=== PATIENT | female | born 1965 | race Caucasian/White ===

== ENCOUNTER 2017-03-16 10:01 | Emergency (ER) | payer MEDICARE, MEDICAID ==
--- NOTE | 2017-03-16 10:47 | ED ---
Abdominal Pain/Female - HPI Summary HPI Summary: Patient presents to the ED with CC of LLQ pain x 3 days. She states the pain is aching/stabbing, is intermitten and rates a 4/10. Worse with BM which the pain radiates to the bilateral flanks. Last BM and was constipated at first with a hard stool, then loose stool to follow. Urinary symptoms include frequency, but denies others. Surgical history includes cholecystectomy and hysterectomy. Denies fevers, sweats or chills. Denies chest pain or SOB. PMHx includes morbid obesity and HTN which is controlled with medications. Denies weakness, YORK, neck pain, nausea and vomiting. She is eating and drinking OK and denies history of constipation. She states she has never had a CT scan. - History of Current Complaint Chief Complaint: EDAbdPain Stated Complaint: ABD PAIN Time Seen by Provider: 03/16/17 10:10 Hx Obtained From: Patient ?: No Onset/Duration: Sudden Onset Timing: Minutes Severity Initially: Moderate Severity Currently: Moderate Pain Intensity: 8 Pain Scale Used: 0-10 Numeric Location: Discrete At: RLQ, Discrete At: LLQ Radiates to: Flank Character: Sharp, Cramping Aggravating Factor(s): Other: - BM Alleviating Factor(s): Nothing Associated Signs and Symptoms: Positive: Constipation, Urinary Symptoms. Negative: Diaphoresis, Fever, Cough, Chest Pain, Vaginal Discharge, Nausea, Vomiting - Risk Factors Ectopic Risk Factor: Negative Allergies/Adverse Reactions: Allergies Allergy/AdvReac Type Severity Reaction Status Date / Time No Known Allergies Allergy Verified 03/16/17 10:58 Home Medications: Home Medications Metoprolol Succinate XL TAB* [Toprol XL TAB*] 10 mg PO DAILY 03/16/17 [History Confirmed 03/16/17] PMH/Surg Hx/FS Hx/Imm Hx Previously Healthy: Yes - morbidly obese - Immunization History Hx Pertussis Vaccination: No Immunizations Up to Date: Unable to Obtain/Confirm Infectious Disease History: No Infectious Disease History: Denies: Traveled Outside the [place] in Last 30 Days - Social History Occupation: Employed Full-time Lives: Alone Alcohol Use: None Hx Substance Use: No Substance Use Type: Reports: None Hx Tobacco Use: No Review of Systems - ROS Summary Review of Systems Summary: Constitutional: The patient denies fever, YORK. HEENT: Head: The patient denies headaches or dizziness. Eyes: The patient denies diplopia, blurry vision, eye pain, eye discharge, photophobia. Throat: The patient denies sore throats or hoarseness. Cardiovascular: The patient denies chest pain, palpitations, syncope, night cramps, or orthostasis. Respiratory: The patient denies cough, sputum production, hemoptysis, dyspnea, wheezing. Gastrointestinal: The patient denies odynophagia, dysphagia, hematemesis, melenemesis. Notes to LLQ abdominal pain. Denies constipation or diarrhea. Flank pain with BM. Genitourinary: Patient denies dysuria, hematuria, or pyuria. Patient denies back pain. Denies vaginal discharge, vaginal bleeding. Denies other urinary symptoms. Endocrine: The patient denies polydipsia, polyuria, or polyphagia. Muscles: The patient denies myalgia, strain or weakness. Joints: The patient denies arthralgia and/or arthritis. Neurologic: The patient denies headache, loss of consciousness, or seizure. Dermatologic: The patient denies hyperpigmentation, rash, or photosensitivity. Constitutional: Negative Eyes: Negative Cardiovascular: Negative Respiratory: Negative Negative: Shortness Of Breath, Cough Positive: Abdominal Pain Positive: see HPI, frequency Musculoskeletal: Negative Neurological: Negative Psychological: Normal All Other Systems Reviewed And Are Negative: Yes Physical Exam - Summary Physical Exam Summary: Patient is A and O x 3. Morbidly obese. Appearance: WDW, comfortable, pleasant, alert Skin: Soft dry skin, no lesions. Nailbeds pink with no cyanosis or clubbing. No petechia noted. Eyes: SARAI, EOMI, Conjunctiva pink with no redness or exudates. Mouth: Dentition without lesions. Moist mucosa Neck: Full range of motion. Palpable thyroid. Trachea at midline. No lymphadenopathy. Pulm: Chest symmetrical expansion. No deformities on posterior chest wall. Lungs clear to auscultation and percussion, without adventitious sounds. CV: No JVD. No deformities on anterior chest wall. Heart soundsRRR, Normal S1 and single S2. No S3, S4, rubs, or murmurs. Carotids 2+ bilaterally without bruits. . exam not performed Musculoskeletal: Flexion and extension of neck limited d/t pain. Brudzynski and Kernig sign negative. No deformities noted. Pulses full and equal. Neuro: Motor strength is 5/5 in upper and lower extremities bilaterally. A&OX3 Psych: Logical, coherent Triage Information Reviewed: Yes Vital Signs On Initial Exam: Initial Vitals Temp Pulse Resp BP Pulse Ox 98.8 F 88 20 154/82 96 03/16/17 10:03 03/16/17 10:03 03/16/17 10:03 03/16/17 10:03 03/16/17 10:03 Vital Signs Reviewed: Yes Appearance: Positive: Well-Appearing, Well-Nourished Skin: Positive: Warm, Skin Color Reflects Adequate Perfusion Head/Face: Positive: Normal Head/Face Inspection Eyes: Positive: EOMI, SARAI, Conjunctiva Clear Neck: Positive: Supple, No Lymphadenopathy Respiratory/Lung Sounds: Positive: Clear to Auscultation, Breath Sounds Present Cardiovascular: Positive: Normal, RRR, Pulses are Symmetrical in both Upper and Lower Extremities Abdomen Description: Positive: Nontender, No Organomegaly, Soft Musculoskeletal: Positive: Normal, Strength/ROM Intact Neurological: Positive: Sensory/Motor Intact, Speech Normal Psychiatric: Positive: Normal AVPU Assessment: Alert Diagnostics - Vital Signs Vital Signs Temp Pulse Resp BP Pulse Ox 03/16/17 10:03 98.8 F 88 20 154/82 96 - Laboratory Result Diagrams: 03/16/17 11:05 03/16/17 11:05 Lab Statement: Any lab studies that have been ordered have been reviewed, and results considered in the medical decision making process. Abdominal Pain Fem Course/Dx - Course Course Of Treatment: Patient is sent to CT abd/pelvis for further evaluation of LLQ pain x 2 days. Pain is not worse with eating. Worse with BM. Labs WNL except for elevated WBC at 14.6 and CRP at 37. UA OK. She declines any pain medication while in ED. Denies history of diverticulitis. LLQ pain on palpation. RLQ pain on deep palpation. Mo's negative. Psoas negative. No tenderness at mcburney's point on light palpation, worse with deep palpation. No CVA tenderness noted. Bowel sounds normal in all 4 quadrants. VS stable. Abd/Pelvis shows: IMPRESSION: 1. FINDINGS MOST CONSISTENT WITH DIVERTICULITIS INVOLVING THE PROXIMAL SIGMOID COLON. THERE IS NO EVIDENCE FOR ABSCESS. 2. MILD HEPATOSPLENOMEGALY AND HEPATIC STEATOSIS. 3. STATUS POST CHOLECYSTECTOMY AND HYSTERECTOMY. Patient is re-eavluated for LLQ pain. - Diagnoses Differential Diagnosis: Positive: Constipation, Diverticulitis Provider Diagnoses: Diverticulitis Discharge - Discharge Plan Condition: Stable Disposition: HOME Prescriptions: Ciprofloxacin TAB* [Cipro 500 MG TAB*] 500 mg PO BID #20 tab Metronidazole [Flagyl 500 MG TAB] 500 mg PO TID #30 tab Patient Education Materials: Diverticulitis (ED), Diverticulitis Diet (ED) Referrals: Gaetano Pitts NP [Primary Care Provider] - 3 Days (Diverticulitis recheck) Additional Instructions: Please follow up with your PCP in 2-3 days. If you develop any worsening symptoms - return to the ED immediately If you develop a fever - return. Clear liquids today and slowly introduce foods (bland diet) starting tomorrow.
[2017-03-16 11:17] LABS: Hematocrit 46 % (35-47); Hemoglobin 15.5 g/dl (12.0-16.0); Mean Corpuscular HGB Conc 34 g/dl (31-36); Mean Corpuscular Hemoglobin 30 pg (27-31); Mean Corpuscular Volume 87 fL (80-97); Mean Platelet Volume 7 um3 (7.4-10.4); Red Blood Count 5.24 10^6/ul (4.0-5.4); Red Cell Distribution Width 14 % (10.5-15); White Blood Count 14.6 10^3/ul (3.5-10.8)
[2017-03-16 11:33] LABS: Albumin 4.1 g/dL (3.2-5.2); BUN/Creatinine Ratio 20.8 (8-20); C Reactive Protein 37.64 mg/L (< 5.00); Calcium 9.2 mg/dL (8.6-10.3); EGFR African American 101.2 (>60); EGFR Non-African American 78.7 (>60); Globulin 3.9 g/dL (2-4); Potassium 4.1 mmol/L (3.5-5.0); Total Bilirubin 0.7 mg/dL (0.2-1.0)
[2017-03-16] MEDS ORDERED: Iohexol 300* (CONTRAST) 10 ML SDV IV ONE (12:52)
[2017-03-16 13:38] LABS: Urine Bilirubin Negative (Negative); Urine Glucose Negative (Negative); Urine Nitrite Negative (Negative)
--- NOTE | 2017-03-16 13:38 | RAD ---
INDICATION: Right and left lower quadrant pain. COMPARISON: There are no prior studies available for comparison. TECHNIQUE: A CT scan of the abdomen and pelvis was performed with intravenous and oral contrast following intravenous injection of 150 ml of Omnipaque 300 nonionic contrast. Contiguous axial sections were obtained from the lung bases through the symphysis pubis. Images were reconstructed in the coronal and sagittal planes. FINDINGS: The lung bases are clear. No pleural effusion is present. The liver and spleen are mildly enlarged. The liver is decreased in attenuation consistent with fatty infiltration. No significant focal hepatic abnormality is seen. The patient is status post cholecystectomy. The pancreas appears to be within normal limits. The kidneys and adrenal glands are normal in size. No hydronephrosis is seen. No significant focal renal abnormality is seen. The aorta is normal in caliber and demonstrates homogeneous contrast opacification. No significant enlarged retroperitoneal lymph nodes are seen. The stomach, small and large bowel appear nondistended. The appendix is within normal limits. There is mild to moderate descending and sigmoid diverticulosis. There is wall thickening and interstitial stranding adjacent to the proximal sigmoid colon which is a nonspecific finding although most consistent with diverticulitis. There is a small amount of fluid tracking along the sigmoid colon. No discrete abscess is seen. The patient is status post hysterectomy. No free intraperitoneal air is seen. There is severe degenerative disc disease at the L5-S1 level. No significant focal osseous abnormality is seen. IMPRESSION: 1. FINDINGS MOST CONSISTENT WITH DIVERTICULITIS INVOLVING THE PROXIMAL SIGMOID COLON. THERE IS NO EVIDENCE FOR ABSCESS. 2. MILD HEPATOSPLENOMEGALY AND HEPATIC STEATOSIS. 3. STATUS POST CHOLECYSTECTOMY AND HYSTERECTOMY.
[2017-03-16 14:32] VITALS: BP 116/59
== END 2017-03-16 14:32 | disposition home or self-care (01) ==
LOC: ED 10:01
DX: R10.32 Left lower quadrant pain (principal)
CPT/HCPCS: 36415; 74177; 80053; 81003; 82550; 83605; 83690; 84702; 85025; 86140; 99282; Q9967

== ENCOUNTER 2022-01-08 17:06 | Inpatient (IN) ==
[2022-01-08 17:38] LABS: ABS Basophils 0.1 10^3/ul (0-0.2); ABS Lymphocytes 2.4 10^3/ul (1.0-4.8); ABS Monocytes 1.1 10^3/ul (0-0.8); ABS Neutrophils 13.3 10^3/ul (1.5-7.7); Eosinophil % 0.1 %; Hematocrit 43 % (35-47); Lymphocyte % 14.3 %; Mean Corpuscular HGB Conc 35 g/dL (31-36); Mean Corpuscular Hemoglobin 31 pg (27-31); Mean Corpuscular Volume 89 fL (80-97); Mean Platelet Volume 7.4 fL (7.4-10.4); Platelet Count 298 10^3/uL (150-450); Red Blood Count 4.85 10^6 /uL (3.70-4.87); Red Cell Distribution Width 13 % (10-15); White Blood Count 16.8 10^3/uL (3.5-10.8)
[2022-01-08 17:57] LABS: INR 1.16 (0.89-1.11)
[2022-01-08 18:01] LABS: High Sens Troponin Baseline 11 pg/mL (<15)
[2022-01-08 18:19] LABS: ALT 47 U/L (7-52); AST 144 U/L (13-39); Albumin 4.1 g/dL (3.2-5.2); Albumin/Globulin Ratio 1.4 (1-3); Alkaline Phosphatase 80 U/L (35-149); Anion Gap 12 mmol/L (2-11); Blood Urea Nitrogen 28 mg/dL (6-24); CO2 Carbon Dioxide 24 mmol/L (22-32); Calcium 8.9 mg/dL (8.6-10.3); Chloride 98 mmol/L (101-111); Glucose 178 mg/dL (70-100); Potassium 3.9 mmol/L (3.5-5.0); Sodium 134 mmol/L (135-145); Total Protein 7.1 g/dL (6.4-8.9); eGFR CKD-EPI 62.7 (>60)
[2022-01-08 19:08] LABS: High Sensitivity Troponin 1 Hr 11 pg/mL (<15)
[2022-01-09 01:39] LABS: TSH Ultra Thyroid Stim Horm 1.22 mcIU/mL (0.34-5.60)
[2022-01-09 01:50] LABS: Folate 15.54 ng/mL (5.90-24.80)
[2022-01-09 01:51] LABS: Vitamin B12 220 pg/mL (180-914)
[2022-01-09 02:11] LABS: Urine Benzodiazepine Screen None Detected (None Detect); Urine Cannabinoids Screen None Detected (None Detect); Urine Opiates Screen None Detected (None Detect)
[2022-01-09] MEDS ORDERED: Thiamine 100 MG/ML 2 ml VIAL 100 MG, Folic Acid IV 1 MG, Multiple Vitamin IV ADULT 10 M... IV ONE (04:00)
[2022-01-09 05:27] LABS: Alcohol, S < 13 mg/dL (<13)
[2022-01-09 05:48] LABS: Urine Appearance Clear; Urine Bilirubin 1+ (Small) (Negative); Urine Blood Trace (Intact) (Negative); Urine Color Amber; Urine Glucose Negative (Negative); Urine Ketones 2+ (40mg/dL) (Negative); Urine Nitrite Negative (Negative); Urine Protein Negative (Negative); Urine Urobilinogen 0.2 (Negative) (Negative); Urine pH 5.5 (5.0-9.0)
[2022-01-09] MEDS ORDERED: Lactated Ringers 1000 ml BAG 1,000 ML IV SCH (06:00)
[2022-01-09 06:03] LABS: Urine Bacteria 1+ (Absent); Urine Red Blood Cell Trace(0-2/hpf) (Absent); Urine Squamous Epithelial Cell Present (Absent); Urine White Blood Cell 2+(11-20/hpf) (Absent)
[2022-01-09] MEDS: Enoxaparin 40 MG/0.4 ML SYR SUBCUT SCH (07:59)
[2022-01-09] MEDS ORDERED: Dextrose 50% Syringe 50 ml 25 GM/50 ML SYRINGE IV PUSH PRN (15:53)
[2022-01-09] MEDS ORDERED: Lorazepam PYXIS KEY PRN (16:26)
[2022-01-09] MEDS ORDERED: LORazepam 2 mg VIAL 1 ml IV PUSH PRN (16:26)
[2022-01-09 16:34] LABS: ABS Lymphocytes 1.8 10^3/ul (1.0-4.8); ABS Monocytes 0.7 10^3/ul (0-0.8); ABS Neutrophils 7.8 10^3/ul (1.5-7.7); Eosinophil % 0.5 %; Hematocrit 40 % (35-47); Hemoglobin 14.1 g/dL (12.0-16.0); Lymphocyte % 17.2 %; Mean Corpuscular HGB Conc 35 g/dL (31-36); Mean Corpuscular Hemoglobin 31 pg (27-31); Mean Corpuscular Volume 89 fL (80-97); Mean Platelet Volume 7.8 fL (7.4-10.4); Platelet Count 245 10^3/uL (150-450); Red Blood Count 4.55 10^6 /uL (3.70-4.87); Red Cell Distribution Width 13 % (10-15); White Blood Count 10.4 10^3/uL (3.5-10.8)
[2022-01-09 17:23] LABS: Calcium 8.1 mg/dL (8.6-10.3); Potassium 3.8 mmol/L (3.5-5.0); eGFR CKD-EPI 101.2 (>60)
[2022-01-09] MEDS ORDERED: diazePAM INJ CARPUJECT 5 MG/ML SYRINGE IV PRN (17:34)
[2022-01-09 18:17] LABS: HIV 4th Generation Nonreactive (Nonreactive)
[2022-01-09] MEDS: Insulin GLARGINE 100 un/ml 10 ml VIAL SUBCUT SCH (21:33)
[2022-01-10] MEDS: Enoxaparin 40 MG/0.4 ML SYR SUBCUT SCH (06:01)
[2022-01-10] MEDS: Insulin GLARGINE 100 un/ml 10 ml VIAL SUBCUT SCH (20:34)
[2022-01-11] MEDS: Heparin 5000 UNITS/ML 1 mL VIAL SUBCUT SCH ×3 (05:14→21:10)
[2022-01-11 10:29] LABS: Ceruloplasmin 28.8 mg/dL
[2022-01-11] MEDS ORDERED: Midazolam 5 mg/5 ml VIAL 1 mg/ml 5 ml VIAL (5 mg) ONE (12:08)
[2022-01-11] MEDS ORDERED: Lidocaine 2% PF 5 ML VIAL ONE (12:09)
[2022-01-11] MEDS ORDERED: Dexamethasone IV 4 MG/ML VIAL 1 ml VIAL ONE (12:09)
[2022-01-11] MEDS ORDERED: Ondansetron 4 mg VIAL 2 MG/ML 2 ml VIAL ONE (12:09)
[2022-01-11] MEDS ORDERED: Propofol 10 MG/ML 20 ML BTL ONE (12:09)
[2022-01-11] MEDS ORDERED: Phenylephrine 40 mcg/mL 10mL (400mcg) SYRINGE ONE (12:09)
[2022-01-11] MEDS ORDERED: fentaNYL 100 mcg/2 ml 50 MCG/ML VIAL ONE (12:09)
[2022-01-11] MEDS ORDERED: Succinylcholine 200 mg VIAL 20 mg/ml 10 ml VIAL (200 mg) ONE (12:10)
[2022-01-11] MEDS ORDERED: Gadoteridol (CONTRAST) 279.3 MG/ML 10 ML IV ONE (13:44)
[2022-01-11 14:46] LABS: Copper, S 120 mcg/dL (77-206)
[2022-01-11] MEDS ORDERED: Naloxone 0.4 mg VIAL 0.4 mg/ml 1 ml VIAL IV PRN (15:04)
[2022-01-11 15:50] LABS: Albumin 2.9 g/dL (3.4-4.7); Albumin/Globulin Ratio 0.82; Gamma Globulin 1.3 g/dL (0.6-1.6); Total Protein(PEP) 6.4 g/dL (6.3 - 7.9)
[2022-01-11] MEDS: Insulin GLARGINE 100 un/ml 10 ml VIAL SUBCUT SCH (20:34)
[2022-01-12] MEDS: Heparin 5000 UNITS/ML 1 mL VIAL SUBCUT SCH ×3 (04:58→21:03)
[2022-01-12 06:02] LABS: ABS Lymphocytes 0.8 10^3/ul (1.0-4.8); ABS Monocytes 0.4 10^3/ul (0-0.8); ABS Neutrophils 7.6 10^3/ul (1.5-7.7); Hematocrit 40 % (35-47); Hemoglobin 13.7 g/dL (12.0-16.0); Lymphocyte % 8.9 %; Mean Corpuscular HGB Conc 34 g/dL (31-36); Mean Corpuscular Hemoglobin 30 pg (27-31); Mean Corpuscular Volume 89 fL (80-97); Mean Platelet Volume 7.7 fL (7.4-10.4); Platelet Count 270 10^3/uL (150-450); Red Blood Count 4.54 10^6 /uL (3.70-4.87); Red Cell Distribution Width 13 % (10-15); White Blood Count 8.8 10^3/uL (3.5-10.8)
[2022-01-12 06:20] LABS: Calcium 8.9 mg/dL (8.6-10.3); Potassium 4.6 mmol/L (3.5-5.0); eGFR CKD-EPI 83.4 (>60)
[2022-01-12] MEDS: Insulin GLARGINE 100 un/ml 10 ml VIAL SUBCUT SCH (21:03)
[2022-01-13] MEDS: Heparin 5000 UNITS/ML 1 mL VIAL SUBCUT SCH ×3 (04:48→20:32)
[2022-01-13 04:59] LABS: ABS Eosinophils 0.1 10^3/ul (0-0.6); ABS Lymphocytes 2.4 10^3/ul (1.0-4.8); ABS Monocytes 0.5 10^3/ul (0-0.8); ABS Neutrophils 4.2 10^3/ul (1.5-7.7); Eosinophil % 0.9 %; Hematocrit 41 % (35-47); Hemoglobin 13.8 g/dL (12.0-16.0); Lymphocyte % 32.7 %; Mean Corpuscular HGB Conc 33 g/dL (31-36); Mean Corpuscular Hemoglobin 30 pg (27-31); Mean Corpuscular Volume 89 fL (80-97); Mean Platelet Volume 7.5 fL (7.4-10.4); Nucleated Red Blood Cells % 0.1; Platelet Count 264 10^3/uL (150-450); Red Blood Count 4.66 10^6 /uL (3.70-4.87); Red Cell Distribution Width 14 % (10-15); White Blood Count 7.2 10^3/uL (3.5-10.8)
[2022-01-13] MEDS: Insulin GLARGINE 100 un/ml 10 ml VIAL SUBCUT SCH (20:31)
[2022-01-14 00:34] LABS: Anaplasma phagocytophilum Negative (Negative); B. miyamotoi PCR, B Negative (Negative); Babesia divergens/MO-1 Negative (Negative); Babesia ducani Negative (Negative); Ehrlichia chaffeensis Negative (Negative); Ehrlichia ewingii/canis Negative (Negative); Ehrlichia muris eauclairensis Negative (Negative)
[2022-01-14] MEDS: Heparin 5000 UNITS/ML 1 mL VIAL SUBCUT SCH ×3 (05:25→20:26)
[2022-01-14 08:40] LABS: Albumin 3.7 g/dL (3.2-5.2); Albumin/Globulin Ratio 1.3 (1-3); Calcium 9.2 mg/dL (8.6-10.3); Globulin 2.9 g/dL (2-4); Total Bilirubin 0.5 mg/dL (0.2-1.0); Total Protein 6.6 g/dL (6.4-8.9); eGFR CKD-EPI 76.6 (>60)
[2022-01-14] MEDS ORDERED: Al Hydrox/Mg Hydrox/Simet LIQ 30 ML UDC PO PRN (15:42)
[2022-01-14] MEDS: Insulin GLARGINE 100 un/ml 10 ml VIAL SUBCUT SCH (20:23)
[2022-01-15] MEDS: Vitamin THERAPEUTIC TAB PO SCH (09:12)
[2022-01-15] MEDS: Heparin 5000 UNITS/ML 1 mL VIAL SUBCUT SCH (14:07)
[2022-01-15] MEDS: Insulin GLARGINE 100 un/ml 10 ml VIAL SUBCUT SCH (20:58)
[2022-01-16] MEDS: Vitamin THERAPEUTIC TAB PO SCH (10:22)
[2022-01-16] MEDS: Insulin GLARGINE 100 un/ml 10 ml VIAL SUBCUT SCH (20:23)
[2022-01-17] MEDS: Vitamin THERAPEUTIC TAB PO SCH (09:11)
[2022-01-17] MEDS: Insulin GLARGINE 100 un/ml 10 ml VIAL SUBCUT SCH (22:46)
[2022-01-18 08:22] LABS: Albumin/Globulin Ratio 0.34; Gamma Globulin 1.4 mg/dL; Protein,Total, Random Urine 12 mg/dL
[2022-01-18] MEDS: Vitamin THERAPEUTIC TAB PO SCH (08:55)
[2022-01-19] MEDS: Vitamin THERAPEUTIC TAB PO SCH (09:08)
[2022-01-20 06:52] LABS: ABS Basophils 0.1 10^3/ul (0-0.2); ABS Eosinophils 0.1 10^3/ul (0-0.6); ABS Lymphocytes 2.4 10^3/ul (1.0-4.8); ABS Monocytes 0.7 10^3/ul (0-0.8); ABS Neutrophils 6.1 10^3/ul (1.5-7.7); Eosinophil % 1.3 %; Hematocrit 43 % (35-47); Hemoglobin 14.5 g/dL (12.0-16.0); Lymphocyte % 25.7 %; Mean Corpuscular HGB Conc 34 g/dL (31-36); Mean Corpuscular Hemoglobin 30 pg (27-31); Mean Corpuscular Volume 89 fL (80-97); Mean Platelet Volume 7.6 fL (7.4-10.4); Platelet Count 277 10^3/uL (150-450); Red Cell Distribution Width 14 % (10-15); White Blood Count 9.3 10^3/uL (3.5-10.8)
[2022-01-20] MEDS: Vitamin THERAPEUTIC TAB PO SCH (08:12)
[2022-01-21] MEDS: Vitamin THERAPEUTIC TAB PO SCH (08:26)
[2022-01-22 07:22] VITALS: BP 133/70
[2022-01-22] MEDS: Vitamin THERAPEUTIC TAB PO SCH (07:40)
[2022-01-22 09:00] LABS: ANNA-1, S Negative titer (<1:240); ANNA-2, S Negative titer (<1:240); DPPX Ab IFA, S Negative (Negative); GFAP IFA, S Negative (Negative); NIF IFA, S Negative (Negative); mGluR1 Ab IFA, S Negative (Negative)
== END 2022-01-22 12:15 | disposition home or self-care (01) | DRG 885 ==
LOC: EDHOLD 17:06 → ED 17:06 → SUATTDRO 01-09 02:28 → MEDTELE 01-09 06:12 → SUATTDRO 01-10 11:00 → BSU 01-14 11:54
PROVIDERS: ADMIT Student in an Organized Health Care Education/Training Program; ATTEND Internal Medicine
PROC: O.ANMRI (2022-01-11 12:30)

== ENCOUNTER 2022-06-19 17:43 | Inpatient (IN) ==
[2022-06-20 06:13] LABS: Urine Appearance Clear; Urine Bilirubin Negative (Negative); Urine Blood Negative (Negative); Urine Color Yellow; Urine Glucose Negative (Negative); Urine Ketones Negative (Negative); Urine Nitrite Negative (Negative); Urine Protein Negative (Negative); Urine Specific Gravity 1.021 (1.002-1.030); Urine Urobilinogen Negative (Negative)
[2022-06-20 06:28] LABS: Urine Benzodiazepine Screen None Detected (None Detect); Urine Cannabinoids Screen None Detected (None Detect); Urine Opiates Screen None Detected (None Detect)
[2022-06-20 18:56] LABS: ABS Eosinophils 0.2 10^3/ul (0-0.6); ABS Lymphocytes 2.3 10^3/ul (1.0-4.8); ABS Monocytes 0.8 10^3/ul (0-0.8); ABS Neutrophils 8.3 10^3/ul (1.5-7.7); Eosinophil % 1.9 %; Hematocrit 43 % (35-47); Hemoglobin 14.2 g/dL (12.0-16.0); Lymphocyte % 19.7 %; Mean Corpuscular HGB Conc 33 g/dL (31-36); Mean Corpuscular Hemoglobin 29 pg (27-31); Mean Corpuscular Volume 87 fL (80-97); Mean Platelet Volume 6.7 fL (7.4-10.4); Nucleated Red Blood Cells % 0.1; Platelet Count 316 10^3/uL (150-450); Red Blood Count 4.99 10^6 /uL (3.70-4.87); Red Cell Distribution Width 15 % (10-15); White Blood Count 11.6 10^3/uL (3.5-10.8)
[2022-06-20 19:32] LABS: ALT 20 U/L (7-52); AST 21 U/L (13-39); Acetaminophen < 15 mcg/mL; Albumin 3.8 g/dL (3.2-5.2); Albumin/Globulin Ratio 1.2 (1-3); Alcohol, S < 13 mg/dL (<13); Alkaline Phosphatase 104 U/L (35-149); Anion Gap 5 mmol/L (2-11); Blood Urea Nitrogen 17 mg/dL (6-24); CO2 Carbon Dioxide 30 mmol/L (22-32); Calcium 9.1 mg/dL (8.6-10.3); Chloride 100 mmol/L (101-111); Creatinine, Serum 0.93 mg/dL (0.51-0.95); Globulin 3.1 g/dL (2-4); Glucose 161 mg/dL (70-100); Potassium 4.4 mmol/L (3.5-5.0); Salicylate < 2.50 mg/dL (<30); Sodium 135 mmol/L (135-145); Total Protein 6.9 g/dL (6.4-8.9); eGFR CKD-EPI 71.7 (>60)
[2022-06-20 19:45] LABS: TSH Ultra Thyroid Stim Horm 1.26 mcIU/mL (0.34-5.60)
[2022-06-23 08:10] LABS: HDL Cholesterol 43.1 mg/dL
[2022-06-25] MEDS ORDERED: Haloperidol 5 mg/ml SDV IV/IM 5 MG/ML AMP ONE (15:22)
[2022-06-25] MEDS ORDERED: LORazepam 2 mg VIAL 1 ml ONE (15:22)
[2022-06-25] MEDS ORDERED: Lorazepam PYXIS KEY ONE (15:22)
[2022-06-25] MEDS ORDERED: Dextrose 50% Syringe 50 ml 25 GM/50 ML SYRINGE IV PUSH PRN (16:38)
[2022-06-25] MEDS: cefTRIAXone VIAL 1,000 MG VIAL IM SCH (18:40)
[2022-06-25] MEDS: Nystatin TOP POWDER 15 GM BTL TOPICAL SCH ×2 (18:41→23:42)
[2022-06-26] MEDS: Nystatin TOP POWDER 15 GM BTL TOPICAL SCH ×3 (11:53→22:00)
[2022-06-26] MEDS: cefTRIAXone VIAL 1,000 MG VIAL IM SCH (17:30)
[2022-06-27 06:18] LABS: ABS Basophils 0.1 10^3/ul (0-0.2); ABS Eosinophils 0.2 10^3/ul (0-0.6); ABS Lymphocytes 2.5 10^3/ul (1.0-4.8); ABS Monocytes 0.8 10^3/ul (0-0.8); ABS Neutrophils 8.6 10^3/ul (1.5-7.7); Hematocrit 44 % (35-47); Hemoglobin 14.8 g/dL (12.0-16.0); Lymphocyte % 20.8 %; Mean Corpuscular HGB Conc 33 g/dL (31-36); Mean Corpuscular Hemoglobin 29 pg (27-31); Mean Corpuscular Volume 87 fL (80-97); Mean Platelet Volume 6.7 fL (7.4-10.4); Platelet Count 386 10^3/uL (150-450); Red Blood Count 5.08 10^6 /uL (3.70-4.87); Red Cell Distribution Width 15 % (10-15); White Blood Count 12.3 10^3/uL (3.5-10.8)
[2022-06-27 06:55] LABS: Calcium 9.3 mg/dL (8.6-10.3); Creatinine, Serum 0.69 mg/dL (0.51-0.95); Magnesium 1.9 mg/dL (1.9-2.7); Potassium 4.3 mmol/L (3.5-5.0); eGFR CKD-EPI 101.2 (>60)
[2022-06-27] MEDS: Nystatin TOP POWDER 15 GM BTL TOPICAL SCH ×3 (09:30→20:49)
[2022-06-27] MEDS ORDERED: Lidocaine 1% MPF 5 ML VIAL IM SCH (17:00)
[2022-06-27] MEDS: cefTRIAXone VIAL 1,000 MG VIAL IM SCH (17:47)
[2022-06-28] MEDS ORDERED: Haloperidol 5 mg/ml SDV IV/IM 5 MG/ML AMP IM PRN ×2 (08:46→09:00)
[2022-06-28] MEDS: Nystatin TOP POWDER 15 GM BTL TOPICAL SCH ×2 (10:03→20:56)
[2022-06-29 07:46] LABS: ABS Eosinophils 0.1 10^3/ul (0-0.6); ABS Lymphocytes 2.3 10^3/ul (1.0-4.8); ABS Monocytes 0.7 10^3/ul (0-0.8); ABS Neutrophils 6.4 10^3/ul (1.5-7.7); Eosinophil % 1.2 %; Hematocrit 41 % (35-47); Hemoglobin 13.8 g/dL (12.0-16.0); Lymphocyte % 24.4 %; Mean Corpuscular HGB Conc 34 g/dL (31-36); Mean Corpuscular Hemoglobin 29 pg (27-31); Mean Corpuscular Volume 87 fL (80-97); Mean Platelet Volume 6.8 fL (7.4-10.4); Platelet Count 322 10^3/uL (150-450); Red Blood Count 4.71 10^6 /uL (3.70-4.87); Red Cell Distribution Width 15 % (10-15); White Blood Count 9.6 10^3/uL (3.5-10.8)
[2022-06-29 08:07] LABS: Calcium 8.8 mg/dL (8.6-10.3); Creatinine, Serum 0.8 mg/dL (0.51-0.95); Potassium 4.5 mmol/L (3.5-5.0); eGFR CKD-EPI 85.9 (>60)
[2022-06-29] MEDS: Nystatin TOP POWDER 15 GM BTL TOPICAL SCH ×2 (08:55→20:49)
[2022-06-30] MEDS: Nystatin TOP POWDER 15 GM BTL TOPICAL SCH ×2 (08:32→20:45)
[2022-07-01] MEDS: Nystatin TOP POWDER 15 GM BTL TOPICAL SCH ×2 (09:49→21:39)
[2022-07-02] MEDS: Nystatin TOP POWDER 15 GM BTL TOPICAL SCH ×2 (08:15→20:40)
[2022-07-03] MEDS: Al Hydrox/Mg Hydrox/Simet LIQ 30 ML UDC PO PRN ×2 (10:13→18:08)
[2022-07-03] MEDS: Nystatin TOP POWDER 15 GM BTL TOPICAL SCH (10:27)
[2022-07-04] MEDS: Nystatin TOP POWDER 15 GM BTL TOPICAL SCH ×3 (08:40→21:09)
[2022-07-05] MEDS: Nystatin TOP POWDER 15 GM BTL TOPICAL SCH (07:20)
[2022-07-05 09:58] VITALS: BP 126/80
== END 2022-07-05 11:48 | disposition home or self-care (01) | DRG 885 ==
LOC: ED 17:43 → EDHOLD 06-20 09:51 → BSU 06-20 11:56
PROVIDERS: ADMIT Psychiatry & Neurology Psychiatry; ATTEND Psychiatry & Neurology Psychiatry